=== PATIENT | female | born 1990 | race Native Hawaiian/Other Pacific Islander ===

== ENCOUNTER 2017-01-13 12:11 | Emergency (ER) | payer OTHER ==
[~2017-01-13] VITALS: Ht 157.5 cm; Wt 60.0 kg
[2017-01-13 12:12] VITALS: BP 127/84; PULSE 97; RESP 16; TEMP 98.5; O2SAT 100
[2017-01-13] MEDS ORDERED: [UNRECOGNIZED DRUG - OTHER] PO (12:32)
[2017-01-13 14:40] LABS: BACTERIA, URINE FEW /hpf; BLOOD, URINE NEG (NEG); COMMENT (UR) CULTURE INDICATED; CULTURE IF INDICATED CULTURE INDICATED; GLUCOSE,URINE NEG (NEG); KETONE, URINE NEG (NEG); MUCUS URINE FEW /lpf (OCC); NITRITE,URINE NEG (NEG); SQUAMOUS EPITHELIAL CELL URINE 1 /hpf (0-5); URINE COLOR LIGHT-YELLOW (YELLW/STRAW)
[2017-01-13] MEDS ORDERED: ACYC400T PO (14:43)
--- NOTE | 2017-01-13 14:47 | PD ---
HPI . Vaginal lesions Chief Complaint: Systems Coordinator Problem/Complaint Time Seen by Provider: 12:58 Travel History International Travel<30 days: No Contact w/Intl Traveler<30days: No Traveled to known affect area: No History of Present Illness HPI 26 year old female patient presents to the emergency department for evaluation of vaginal sores and dysuria x 3 days. Patient denies any other physiological complaint at this time. Denies any major medical history and doesn't take any daily medications. Patient states she is a virgin and has never had any type of sexual encounter. Patient's fiance in the room. He didn't want to step out and the patient wanted him in the room. Patient denies any fever, chills, malaise, abdominal pain, nausea, vomiting, diarrhea. PFSH Past Medical History Medical History: Denies Significant Hx Diminished Hearing: No ?: Not Past Surgical History Gynecologic Surgery: Yes (OVARIAN CYST REMOVED) Social History Alcohol Use: No Tobacco Use: No Substance Use: No Allergies-Medications (Allergen,Severity, Reaction): Coded Allergies: No Known Allergies (Unverified , 01/13/17) Reported Meds & Prescriptions Reported Meds & Active Scripts Active Macrobid (Nitrofurantoin Monoh/Nitrofur Macro) 100 Mg Cap 100 Mg PO BID 10 Days Acyclovir 400 Mg Tab 400 Mg PO TID 10 Days Reported [Novelon] 1 Tab PO DAILY Review of Systems Except as stated in HPI: all other systems reviewed are Neg Physical Exam Narrative GENERAL: Well-nourished, well-developed 26 year old female patient that appears to be uncomfortable. Nontoxic appearing. SKIN: Focused skin assessment warm/dry. HEAD: Normocephalic. Atraumatic. EYES: No scleral icterus. No injection or drainage. NECK: Supple, trachea midline. No JVD or lymphadenopathy. CARDIOVASCULAR: Regular rate and rhythm without murmurs, gallops, or rubs. RESPIRATORY: Breath sounds equal bilaterally. No accessory muscle use. GENITOURINARY: Dysuria, multiple very painful vaginal lesions noted extending from labia minora and majora. GASTROINTESTINAL: Abdomen soft, non-tender, nondistended. MUSCULOSKELETAL: No cyanosis, or edema. Data Data Last Documented VS Vital Signs Date Time Temp Pulse Resp B/P (MAP) Pulse Ox O2 Delivery O2 Flow Rate FiO2 01/13/17 12:12 98.5 97 16 127/84 (98) 100 Orders Orders Gc And Chlamydia Pcr (01/13/17 13:13) Wet Prep Profile (01/13/17 13:13) Urinalysis - C+S If Indicated (01/13/17 13:13) Herpes Simplex Virus Culture (01/13/17 13:13) Urine Culture (01/13/17 14:22) Ed Discharge Order (01/13/17 14:48) Nitrofurantoin Monohyd Macrocr (Macrobid (01/13/17 15:00) Labs Laboratory Tests Test 01/13/17 14:22 Urine Color LIGHT-YELLOW Urine Turbidity HAZY Urine pH 5.0 Urine Specific [place] 1.003 Urine Protein NEG mg/dL Urine Glucose (UA) NEG mg/dL Urine Ketones NEG mg/dL Urine Occult Blood NEG Urine Nitrite NEG Urine Bilirubin NEG Urine Urobilinogen LESS THAN 2.0 MG/DL Urine Leukocyte Esterase LARGE Urine RBC 3 /hpf Urine WBC 13 /hpf Urine Squamous Epithelial Cells 1 /hpf Urine Amorphous Sediment RARE Urine Bacteria FEW /hpf Urine Mucus FEW /lpf Microscopic Urinalysis Comment CULTURE INDICATED MDM Medical Decision Making Medical Screen Exam Complete: Yes Emergency Medical Condition: Yes Differential Diagnosis Differential diagnoses include but not limited to us STI, genital herpes, vaginal lesions, UTI Narrative Course Patient refused to have a pelvic exam stating she has never been and never had sex. Patient states there were been nothing found internal and she does not what an internal exam. Patient did allow us to culture the vaginal lesions. Patient's fiance refused to leave the room and patient states she would like him in the room. Vaginal lesions cultures for herpes. U/A results reflect UTI. Patient treated empirically for herpes with a prescription for Acyclovir and instructed to follow up with her doctor of radiology. Patient given a prescription for Macrobid for urinary tract infection. Patient discharged home at this time. Diagnosis Primary Impression: Genital lesion, female Additional Impression: Urinary tract infection Qualified Codes: N39.0 - Urinary tract infection, site not specified Referrals: Construction Management Instructor Patient Instructions: Acyclovir (By mouth), General Instructions Additional Instructions: Please return to emergency department if your symptoms return or worsen. Follow up with your doctor of radiology. Take medications as prescribed. Med/Other Pt SpecificInfo: Prescription(s) given Scripts Nitrofurantoin Monohydrate Macrocrystals (Macrobid) 100 Mg Cap 100 MG PO BID for Infection for 10 Days, #20 CAP 0 Refills Prov: Mehreen Cervantes DO 01/13/17 Acyclovir (Acyclovir) 400 Mg Tab 400 MG PO TID for Mgmt Viral Infection for 10 Days, TAB 0 Refills Prov: Telma Thomas 01/13/17 Disposition: 01 DISCHARGE HOME Condition: Stable Telma Thomas Jan 13, 2017 14:47
[2017-01-13] MEDS ORDERED: MACR100C2 PO (14:56)
[2017-01-13] MEDS ORDERED: NITROFURANTOIN MONOHYD MACROCR 100 MG CAP PO ONE (15:00)
[2017-01-14 02:52] LABS: CHLAMYDIA PCR NOT DETECTED (NOT DETECT); NEISSERIA PCR NOT DETECTED (NOT DETECT)
== END 2017-01-13 15:22 | disposition home or self-care (01) ==
LOC: NEPD 12:11
DX: A60.04 Herpesviral vulvovaginitis (principal); N39.0 Urinary tract infection, site not specified; B96.89 Other specified bacterial agents as the cause of diseases classified elsewhere
CPT/HCPCS: 81001; 87086; 87255; 87491; 87591; 99284

== ENCOUNTER 2018-01-18 01:18 | Observation (INO) ==
[2018-01-18] MEDS ORDERED: Morphine Inj 4 MG/ML Vial IV.PUSH ONE (02:52)
[2018-01-18] MEDS ORDERED: Sod Chloride 0.9% Inj 1,000 ML IV.SIG ONE (02:52)
--- NOTE | 2018-01-18 03:10 | ED ---
HPI General Chief Complaint: Abdominal Pain Stated Complaint: Lower abd pain x 1 day Time Seen by Provider: 01/18/18 02:51 Source: patient and family () Mode of arrival: ambulatory Limitations: no limitations History of Present Illness HPI narrative: 27-year-old female came to the emergency room with history of abdominal pain that has been going on for the past 4 days. Patient went to the school clinic where she was told that she had a UTI and was started on antibiotic. Patient does not recall the name of the medication but she has been taking it for past 3 days. However the pain continued. Currently her pain is in the right lower quadrant and anal area. Patient denies any nausea or vomiting. She says that her appetite is intact. Her last meal was dinner which she ate as normal. There was a urine done today at the clinic when she revisited the place for the abdominal pain and it was negative. Patient appears uncomfortable. She is otherwise a healthy person. She had a bowel movement yesterday which was normal. Pain is worse upon movement. No radiation of the pain. Related Data Previous Rx's Medication Instructions Recorded doxycycline hyclate 100 mg PO Q12HR 9 Days cap 01/19/18 hydrocodone-acetaminophen [[place]] 1 tab PO Q6H PRN 10 Days tab 01/19/18 levofloxacin [Levaquin] 750 mg PO DAILY 7 Days #7 tab 01/19/18 magnesium hydroxide [Milk of 5 ml PO DAILY PRN #50 ml 01/19/18 Magnesia] simethicone [Gas-X] 1 strip PO DAILY 5 Days each 01/19/18 Allergies Allergy/AdvReac Type Severity Reaction Status Date / Time No Known Allergies Allergy Verified 01/18/18 03:14 [facility] History Provided By: Patient Social History Social History Substance History: No History of Abuse Second Hand Smoke Exposure: No Smoking Status: Never smoker How Often Do You Have a Drink Containing Alcohol: Monthly or less Recent Travel in [facility] within the Last 8 Weeks: No Recent Out of Country Travel within the Last 8 Weeks: Yes Exam Narrative Exam Narrative: GENERAL: Awake, alert, moderate to significant distress SKIN: Focused skin assessment warm/dry. HEAD: Atraumatic. Normocephalic. EYES: Pupils equal and round. No scleral icterus. No injection or drainage. ENT: No nasal bleeding or discharge. Mucous membranes pink and moist. NECK: Trachea midline. No JVD. CARDIOVASCULAR: Regular rate and rhythm. No murmur appreciated. RESPIRATORY: No accessory muscle use. Clear to auscultation. Breath sounds equal bilaterally. GASTROINTESTINAL: Abdomen soft, generalized tenderness with guarding, nondistended. Hepatic and splenic margins not palpable. MUSCULOSKELETAL: No obvious deformities. No clubbing. No cyanosis. No edema. NEUROLOGICAL: Awake and alert. No obvious cranial nerve deficits. Motor grossly within normal limits. Normal speech. PSYCHIATRIC: Appropriate mood and affect; insight and judgment normal. Course Initial Documented Vital Signs Temperature 97.1 F L 01/18/18 01:23 Pulse Rate 100 H 01/18/18 01:23 Respiratory Rate 18 01/18/18 01:23 Blood Pressure 123/82 01/18/18 01:23 Pulse Oximetry 96 01/18/18 01:23 Last Documented Vital Signs Temperature 97.3 F L 01/19/18 12:00 Pulse Rate 91 H 01/19/18 12:00 Respiratory Rate 16 01/19/18 12:00 Blood Pressure 122/74 01/19/18 12:00 Pulse Oximetry 100 01/19/18 12:00 Sign Out Sign Out Data: Patient Sign Out occurred on 01/18/18 at 07:02. Patient's care was discussed, and care was transferred from Nicho Crockett to Lisa Harmon MD. Sign Out Comment: Pending ultrasound pelvic to rule out TOA versus ovarian torsion. Call Dr. Vela with the report. Last updated by Nicho Crockett MD at 01/18/18 06:53 Post-Handoff Eval: I received care of patient in check out. Doppler US showed adequate flow to the bilateral ovaries. I discussed this with the OB Hospitalist campus monitor, whom recommended that she be admitted here for IV antibiotics and have a routine gynecology consult, which has been placed. I spoke with Dr Kaba, hospitalist campus monitor whom agreed to the admission. Medical Decision Making MDM Narrative Medical decision making narrative: 4:01 AM awaiting for blood test results and CAT scan to be done and resulted. Patient has been medicated for pain. She is getting IV fluid bolus. 5:16 AM blood test results are back. Patient has leukocytosis with left shift. UA seems to be positive. Patient is given a dose of Zosyn for possible appendicitis/abscess/diverticulitis. Awaiting for the CAT scan to be done and resulted. 6:46 AM based on the CAT scan report I decided to get a pelvic exam done. Patient told me during the exam that her only sexual partner so far in her life has been her . They have had protected sex with condom at all times apparently. However her did mention to her 2 days back that he had some irritation at the tip of the urethra. The pelvic exam was extremely uncomfortable and painful for the patient. There was some bloody mucus discharge. Swabs are collected. Patient had positive CMT and right adnexal tenderness. I have ordered for an ultrasound. I discussed the case with Dr. Vela from [facility] at the [facility]. He recommended to wait for the CAT scan report and to give him a call back to discuss further plans. Case will be signed over to the oncoming ER physician. Medical Screen Exam Complete: Yes Emergency Medical Condition: Yes Lab Data Result diagrams: 01/19/18 07:28 01/19/18 07:28 POC Results POC Urine Results Negative Lab Results 01/18/18 01/18/18 01/18/18 Range/Units 04:00 04:00 04:00 CBC w Diff Auto diff final WBC 19.0 H (4.0-11.0) th/mm3 RBC 4.64 (4.00-5.30) mil/mm3 Hgb 13.9 (11.6-15.3) gm/dL Hct 41.3 (35.0-46.0) % MCV 88.9 (80.0-100.0) fL MCH 30.0 (27.0-34.0) pg MCHC 33.7 (32.0-36.0) % RDW 12.7 (11.6-17.2) % Plt Count 415 (150-450) th/mm3 MPV 7.5 (7.0-11.0) fL Neut % (Auto) 85.4 H (16.0-70.0) % Lymph % (Auto) 8.7 L (9.0-44.0) % [place] % (Auto) 5.0 (0.0-8.0) % Eos % (Auto) 0.5 (0.0-4.0) % Baso % (Auto) 0.4 (0.0-2.0) % Neut # (Auto) 16.1 H (1.8-7.7) th/mm3 Lymph # (Auto) 1.7 (1.0-4.8) th/mm3 [place] # (Auto) 1.0 H (0.0-0.9) th/mm3 Eos # (Auto) 0.1 (0.0-0.4) th/mm3 Baso # (Auto) 0.1 (0.0-0.2) th/mm3 WBC Differential . Differential Comment . Sodium 139 (136-145) meq/L Potassium 3.9 (3.5-5.1) meq/L Chloride 105 (98-107) meq/L Carbon Dioxide 26.4 (21.0-32.0) meq/L Anion Gap 8 (5-15) meq/L BUN 11 (7-18) mg/dL Creatinine 0.78 (0.50-1.00) mg/dL Estimated GFR 87 L (>89) mL/min Random Glucose 106 (74-106) mg/dL Lactic Acid (0.4-2.0) mmol/L Calcium 8.4 L (8.5-10.1) mg/dL Magnesium 2.3 (1.5-2.5) mg/dL Total Bilirubin 0.4 (0.2-1.0) mg/dL AST 15 (15-37) U/L ALT 15 (10-53) U/L Alkaline Phosphatase 108 (45-117) U/L Total Protein 7.8 (6.4-8.2) g/dL Albumin 3.4 (3.4-5.0) g/dL Lipase 102 (73-393) U/L Urine Color [place] H (Yellw/Straw) Urine Clarity Clear (Clear) Urine pH 5.0 (5.0-8.5) Ur Specific [place] 1.020 (1.002-1.035) Urine Protein 100 H (Neg-Trace) mg/dL Urine Glucose (UA) 250 H (Negative) mg/dL Urine Ketones Trace H (Negative) mg/dL Urine Occult Blood Large H (Negative) Urine Nitrate Positive H (Negative) Urine Bilirubin Negative (Negative) Urine Ictotest Negative (Negative) Urine Urobilinogen 4.0 H (Less than 2) mg/dL Ur Leukocyte Esterase Trace H (Negative) Urine RBC 15-50 H (0-3) /hpf Urine WBC 9-20 H (0-5) /hpf Ur Squamous Epith Cells 0-5 (0-5) /hpf Urine Bacteria Rare H (None) /hpf Micro UA Comment Culture indicated Ur Microscopic Review Microscopic reviewed Urine Culture Comments Culture indicated Clue Cells (Wet Prep) (None Seen) Trichomonas (Wet Prep) (None Seen) Yeast (Wet Prep) (None Seen) Chlam trachomat DNA PCR (Not Detect) N.gonorrhoeae DNA (PCR) (Not Detect) 01/18/18 01/18/18 01/18/18 Range/Units 04:50 06:15 06:15 CBC w Diff WBC (4.0-11.0) th/mm3 RBC (4.00-5.30) mil/mm3 Hgb (11.6-15.3) gm/dL Hct (35.0-46.0) % MCV (80.0-100.0) fL MCH (27.0-34.0) pg MCHC (32.0-36.0) % RDW (11.6-17.2) % Plt Count (150-450) th/mm3 MPV (7.0-11.0) fL Neut % (Auto) (16.0-70.0) % Lymph % (Auto) (9.0-44.0) % [place] % (Auto) (0.0-8.0) % Eos % (Auto) (0.0-4.0) % Baso % (Auto) (0.0-2.0) % Neut # (Auto) (1.8-7.7) th/mm3 Lymph # (Auto) (1.0-4.8) th/mm3 [place] # (Auto) (0.0-0.9) th/mm3 Eos # (Auto) (0.0-0.4) th/mm3 Baso # (Auto) (0.0-0.2) th/mm3 WBC Differential Differential Comment Sodium (136-145) meq/L Potassium (3.5-5.1) meq/L Chloride (98-107) meq/L Carbon Dioxide (21.0-32.0) meq/L Anion Gap (5-15) meq/L BUN (7-18) mg/dL Creatinine (0.50-1.00) mg/dL Estimated GFR (>89) mL/min Random Glucose (74-106) mg/dL Lactic Acid 1.2 (0.4-2.0) mmol/L Calcium (8.5-10.1) mg/dL Magnesium (1.5-2.5) mg/dL Total Bilirubin (0.2-1.0) mg/dL AST (15-37) U/L ALT (10-53) U/L Alkaline Phosphatase (45-117) U/L Total Protein (6.4-8.2) g/dL Albumin (3.4-5.0) g/dL Lipase (73-393) U/L Urine Color (Yellw/Straw) Urine Clarity (Clear) Urine pH (5.0-8.5) Ur Specific [place] (1.002-1.035) Urine Protein (Neg-Trace) mg/dL Urine Glucose (UA) (Negative) mg/dL Urine Ketones (Negative) mg/dL Urine Occult Blood (Negative) Urine Nitrate (Negative) Urine Bilirubin (Negative) Urine Ictotest (Negative) Urine Urobilinogen (Less than 2) mg/dL Ur Leukocyte Esterase (Negative) Urine RBC (0-3) /hpf Urine WBC (0-5) /hpf Ur Squamous Epith Cells (0-5) /hpf Urine Bacteria (None) /hpf Micro UA Comment Ur Microscopic Review Urine Culture Comments Clue Cells (Wet Prep) None seen (None Seen) Trichomonas (Wet Prep) None seen (None Seen) Yeast (Wet Prep) None seen (None Seen) Chlam trachomat DNA PCR Not detected (Not Detect) N.gonorrhoeae DNA (PCR) Not detected (Not Detect) 01/19/18 01/19/18 Range/Units 07:28 07:28 CBC w Diff Auto diff final WBC 10.6 (4.0-11.0) th/mm3 RBC 4.21 (4.00-5.30) mil/mm3 Hgb 12.9 (11.6-15.3) gm/dL Hct 37.8 (35.0-46.0) % MCV 89.7 (80.0-100.0) fL MCH 30.5 (27.0-34.0) pg MCHC 34.0 (32.0-36.0) % RDW 12.5 (11.6-17.2) % Plt Count 394 (150-450) th/mm3 MPV 7.6 (7.0-11.0) fL Neut % (Auto) 61.4 (16.0-70.0) % Lymph % (Auto) 28.2 (9.0-44.0) % [place] % (Auto) 7.4 (0.0-8.0) % Eos % (Auto) 1.4 (0.0-4.0) % Baso % (Auto) 1.6 (0.0-2.0) % Neut # (Auto) 6.5 (1.8-7.7) th/mm3 Lymph # (Auto) 3.0 (1.0-4.8) th/mm3 [place] # (Auto) 0.8 (0.0-0.9) th/mm3 Eos # (Auto) 0.1 (0.0-0.4) th/mm3 Baso # (Auto) 0.2 (0.0-0.2) th/mm3 WBC Differential . Differential Comment . Sodium 141 (136-145) meq/L Potassium 3.7 (3.5-5.1) meq/L Chloride 107 (98-107) meq/L Carbon Dioxide 26.3 (21.0-32.0) meq/L Anion Gap 8 (5-15) meq/L BUN 6 L (7-18) mg/dL Creatinine 0.75 (0.50-1.00) mg/dL Estimated GFR Greater than 89 (>89) mL/min Random Glucose 90 (74-106) mg/dL Lactic Acid (0.4-2.0) mmol/L Calcium 7.9 L (8.5-10.1) mg/dL Magnesium (1.5-2.5) mg/dL Total Bilirubin (0.2-1.0) mg/dL AST (15-37) U/L ALT (10-53) U/L Alkaline Phosphatase (45-117) U/L Total Protein (6.4-8.2) g/dL Albumin (3.4-5.0) g/dL Lipase (73-393) U/L Urine Color (Yellw/Straw) Urine Clarity (Clear) Urine pH (5.0-8.5) Ur Specific [place] (1.002-1.035) Urine Protein (Neg-Trace) mg/dL Urine Glucose (UA) (Negative) mg/dL Urine Ketones (Negative) mg/dL Urine Occult Blood (Negative) Urine Nitrate (Negative) Urine Bilirubin (Negative) Urine Ictotest (Negative) Urine Urobilinogen (Less than 2) mg/dL Ur Leukocyte Esterase (Negative) Urine RBC (0-3) /hpf Urine WBC (0-5) /hpf Ur Squamous Epith Cells (0-5) /hpf Urine Bacteria (None) /hpf Micro UA Comment Ur Microscopic Review Urine Culture Comments Clue Cells (Wet Prep) (None Seen) Trichomonas (Wet Prep) (None Seen) Yeast (Wet Prep) (None Seen) Chlam trachomat DNA PCR (Not Detect) N.gonorrhoeae DNA (PCR) (Not Detect) Imaging Data Radiologist's impression: Abdomen/Pelvis CT 01/18/18 02:52 CONCLUSION: 1. There is a 3.9 cm heterogeneous density lesion associated with the right ovary. The nonspecific this could represent a hemorrhagic cyst and is likely the cause for the patient's pain. There may be some associated inflammation in the adjacent fat and bowel. 2. The terminal ileum has a normal appearance and the appendix is normal and in a retrocecal position away from the right lower quadrant abnormality. Pelvis Ultrasound 01/18/18 05:45 CONCLUSION: 1. There is a complex cyst versus mass in the right adnexa measuring approximately 2.8 cm. This may represent a hemorrhagic cyst versus endometrioma. 2. The left ovary is heterogeneous. 3. The uterus is grossly unremarkable. Abdomen/Pelvis/Transvag US 01/18/18 08:13 CONCLUSION: 1. The uterus is grossly unremarkable. 2. Bilateral complex ovarian masses. 3. Both ovaries demonstrate blood flow. Discharge Plan Discharge Disposition Patient Disposition: 30 Still Patient Discharge Condition Condition: Stable Discharge Order Discharge Orders: Discharge Order (Routine); Ordered 01/19/18 Ordered By: Telma Woodson ED Use Only Admit Order (Routine); Ordered 01/18/18 Ordered By: Lisa Harmon Discharge Details Anticipated Discharge Date: 01/19/18 Diagnosis: Acute pelvic inflammatory disease (PID) Physicians Team ED Provider: Lisa Harmon Primary Care Provider: Primary Care Physici,No Attending Provider: Ganesh Kaba Other Providers: Sandy Can ; [facility],Insurance Status ED Status: Left Department Discharge Information Discharge Date/Time: 01/18/18 12:15
[2018-01-18 04:32] LABS: Clarity,Urine Clear (Clear); Glucose,Urine (UA) 250 mg/dL (Negative); Leukocyte Esterase,Urine Trace (Negative); Nitrite,Urine Positive (Negative)
[2018-01-18 04:34] LABS: Color,Urine Orange (Yellw/Straw)
[2018-01-18 04:35] LABS: Baso # (Auto) 0.1 th/mm3 (0.0-0.2); Baso % (Auto) 0.4 % (0.0-2.0); Bilirubin,Urine Negative (Negative); Eos # (Auto) 0.1 th/mm3 (0.0-0.4); Eos % (Auto) 0.5 % (0.0-4.0); Hematocrit 41.3 % (35.0-46.0); Hemoglobin 13.9 gm/dL (11.6-15.3); Ictotest,Urine Negative (Negative); Lymph # (Auto) 1.7 th/mm3 (1.0-4.8); Lymph % (Auto) 8.7 % (9.0-44.0); Mean Corpuscular HGB Conc 33.7 % (32.0-36.0); Mean Corpuscular Volume 88.9 fL (80.0-100.0); Mean Platelet Volume 7.5 fL (7.0-11.0); Neut # (Auto) 16.1 th/mm3 (1.8-7.7); Neut % (Auto) 85.4 % (16.0-70.0); Platelet Count 415 th/mm3 (150-450); Red Blood Count 4.64 mil/mm3 (4.00-5.30); Red Cell Distribution Width 12.7 % (11.6-17.2)
[2018-01-18 04:37] LABS: Bacteria,Urine Rare /hpf; Squamous Epithelial Cell,Urine 0-5 /hpf (0-5)
[2018-01-18] MEDS ORDERED: Piperacil/Tazo 3.375 GM Premix 50 ML IV.SIG ONE (04:38)
[2018-01-18 04:45] LABS: Chloride 105 meq/L (98-107); Potassium 3.9 meq/L (3.5-5.1); Sodium 139 meq/L (136-145)
[2018-01-18 04:48] LABS: Calcium 8.4 mg/dL (8.5-10.1)
[2018-01-18 04:49] LABS: Albumin 3.4 g/dL (3.4-5.0); Anion Gap 8 meq/L (5-15); Blood Urea Nitrogen 11 mg/dL (7-18); Carbon Dioxide 26.4 meq/L (21.0-32.0); Glucose,Random 106 mg/dL (74-106); Lipase 102 U/L (73-393); Magnesium 2.3 mg/dL (1.5-2.5)
[2018-01-18 04:52] LABS: Alanine Aminotransferase 15 U/L (10-53); Aspartate Aminotransferase 15 U/L (15-37); Glomerular Filtration Rate 87 mL/min (>89)
[2018-01-18 04:53] LABS: Total Protein 7.8 g/dL (6.4-8.2)
[2018-01-18 04:54] LABS: Alkaline Phosphatase 108 U/L (45-117)
--- NOTE | 2018-01-18 05:42 | CT ---
EXAM DATE: 01/18/2018 5:27 AM EST AGE/SEX: 27 years / Female INDICATIONS: Right lower quadrant pain. CLINICAL DATA: This is the patient's initial encounter. Patient reports that signs and symptoms have been present for 4 - 6 days and indicates a pain score of 3/10. MEDICAL/SURGICAL HISTORY: None. None. ORAL CONTRAST: No oral contrast ingested. RADIATION DOSE: 10.49 CTDI (mGy) COMPARISON: No prior exams available for comparison. TECHNIQUE: Multiple contiguous axial images were obtained through the abdomen and pelvis following b olus infusion of 95 ml Omnipaque 350 (iohexol) nonionic water-soluble contrast as a single exam dos e. No oral contrast ingested. Using automated exposure control and adjustment of the mA and/or kV ac cording to patient size, radiation dose was kept as low as reasonably achievable to obtain optimal di agnostic quality images. DICOM format image data is available electronically for review and comparis on. FINDINGS: Lower chest: No acute abnormality is identified. Hepatobiliary: No focal liver lesion is identified. Hepatic vasculature demonstrates no abnormality. No calcified gallstones are present. Kidneys: No hydronephrosis, stone, or mass. Adrenal Glands: Within normal limits. Spleen: Within normal limits. Pancreas: Within normal limits. Vascular: The aorta is nonaneurysmal. Bowel/Mesentery: The stomach and small bowel demonstrate no abnormality. No acute colon abnormality i s seen. There is no free intraperitoneal air or fluid. The appendix and terminal ileum have a normal appearance. It may be a mild degree of inflammation or edema in the right lower quadrant adjacent to the right ovary. Additionally, the adjacent bowel may be mildly inflamed. Abdominal Wall: No hernia is visualized. Retroperitoneum: No lymphadenopathy. Bladder: No wall thickening or mass. Reproductive: Uterus and left ovary demonstrate no abnormality. There is a heterogeneous density lesi on in the right adnexa measuring up to 3.9 cm arising from the right ovary. There may be is a mild de gree of adjacent inflammation. There is no free fluid. Inguinal: No lymphadenopathy or hernia. Musculoskeletal: No acute osseous abnormality is identified. CONCLUSION: 1. There is a 3.9 cm heterogeneous density lesion associated with the right ovary. The nonspecific t his could represent a hemorrhagic cyst and is likely the cause for the patient's pain. There may be s ome associated inflammation in the adjacent fat and bowel. 2. The terminal ileum has a normal appearance and the appendix is normal and in a retrocecal positio n away from the right lower quadrant abnormality. Electronically signed by: Selvin Ocampo MD 01/18/2018 5:40 AM EST
--- NOTE | 2018-01-18 07:57 | US ---
EXAM DATE: 01/18/2018 7:50 AM EST AGE/SEX: 27 years / Female INDICATIONS: Pelvic pain. CLINICAL DATA: This is the patient's initial encounter. Patient reports that signs and symptoms have been present for 4 - 6 days and indicates a pain score of 7/10. MEDICAL/SURGICAL HISTORY: None. None. COMPARISON: [facility], CT ABDOMEN & PELVIS W CONTRAST, 01/18/2018. . MEASUREMENTS: Uterus:__7.8 x 5.9 x 4.2 cm Endometrial Stripe:__5 mm Right Ovary:__ 4.0 x 3.9 x 2.6 cm Left Ovary:__ 3.7 x 3.4 x 2.9 cm FINDINGS: Uterus: The myometrium has homogeneous echotexture without mass. The endometrial cavity appears empt y. Endometrial Stripe: The endometrial stripe displays homogeneous echotexture. Right Ovary: There is a complex cyst versus mass in the right adnexa associated with the right ovary . This measures approximately 2.8 x 2.5 cm. There is also a small benign-appearing cyst measuring 9 m m. Left Ovary: The left ovary is heterogeneous. Fluid: No free fluid. Other: None. These findings appear to correlate with the recent CT scan of the abdomen/pelvis. CONCLUSION: 1. There is a complex cyst versus mass in the right adnexa measuring approximately 2.8 cm. This may represent a hemorrhagic cyst versus endometrioma. 2. The left ovary is heterogeneous. 3. The uterus is grossly unremarkable. Electronically signed by: Pipo Chappell MD 01/18/2018 7:56 AM EST
--- NOTE | 2018-01-18 10:18 | US ---
EXAM DATE: 01/18/2018 10:11 AM EST AGE/SEX: 27 years / Female INDICATIONS: Pelvic pain;. Evaluate ovaries for color flow. CLINICAL DATA: This is the patient's subsequent encounter. Patient reports that signs and symptoms h ave been present for 4 - 6 days and indicates a pain score of 2/10. MEDICAL/SURGICAL HISTORY: . Pelvic pain. Hiatal hernia. Right ovarian cysts. . Laparoscopic to remove right ovarian cyst. COMPARISON: [facility], US PELVIC COMP W TRANSVAGINAL, 01/18/2018. . MEASUREMENTS: Uterus:__8.0 x 5.7 x 3.6 cm Endometrial Stripe:__5 mm Right Ovary:__ 4.4 x 4.4 x 3.2 cm Left Ovary:__ 3.1 x 4.2 x 2.6 cm FINDINGS: Uterus: The myometrium has homogeneous echotexture without mass. Endometrial Stripe: The endometrial stripe displays homogeneous echotexture. Right Ovary: There is a complex mass associated with the right ovary measuring 3.3 x 2.7 cm. There i s blood flow to the right ovary. Left Ovary: There is a complex mass associated with the left ovary measuring 1.9 x 1.6 cm. There is blood flow to the left ovary. Fluid: No free fluid. Other: None. CONCLUSION: 1. The uterus is grossly unremarkable. 2. Bilateral complex ovarian masses. 3. Both ovaries demonstrate blood flow. Electronically signed by: Pipo Chappell MD 01/18/2018 10:16 AM EST
[2018-01-18] MEDS ORDERED: Acetaminophen 325 MG Tablet PO PRN (12:01)
--- NOTE | 2018-01-18 12:30 | P.CONOB ---
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 Pain started with dysuria symptoms on Saturday, pt is in graduate school at [employer] and went to health clinic there, was told has UTI and started on antibiotic, pt does not remember name but states she has been taking as prescribed. States pain improved on Saturday but on night she had RLQ pain and period-like cramps, despite her cycle having ended on Saturday. Took hot bath and was able to go to sleep with resolution of pain by Saturday morning. Saturday evening woke up with pressure in anal area, went to bathroom and had normal BM but no improvement in pain. Contacted her SALES SERVICE SUPERVISOR physician in [facility] (who she has seen since since time of menarche age 10), who encouraged her to go to the hospital for evaluation as pt has hx of endometriosis diagnosed on laparoscopy in 2008 or 2009, had "8cm endometrioma chocolate cyst" removed surgically at that time, was on Lupron x 3 doses after surgery and had done well until 2016 when states cysts began to occur again. Patient does have a private SALES SERVICE SUPERVISOR Dr. Yuliet Moya of [facility] , who had placed pt on continuous OCP suppression x 6 months, this just ended in November 2017. Cycle pt had starting through 01/14/18 was first cycle in months as first time she was off continuous OCP. She did restart her control on as per her SALES SERVICE SUPERVISOR Dr. Moya. Afebrile, no chills, having light spotting today. Usually cycles only last 4-5d, this last cycle was unusual in that it is still going on. Patient states currently pain is 2/ 10 in low pelvis with no longer radiating to rectal area. No concern for STI as she & her are each other's only partners and they use condoms every time they are active. Patient does have hx of UTI, she admits she often holds her urine and does not drink water throughout the day. Para: 0 : 0 Last menstrual period: 01/09/18 Total # of Miscarriage(s): 0 Total # of Abortions (Spontaneous & Elective): 0 Review of Systems All other systems reviewed negative except as stated in HPI PMFSH - History History Provided By: Patient - Medical History Medical History: Medical History (Last Updated 01/18/18 @ 12:19 by Sandy Can MD) History of endometriosis Primary dysmenorrhea - Surgical History Surgical History: Surgical History (Last Updated 01/18/18 @ 12:19 by Sandy Can MD) H/O ovarian cystectomy History of repair of hiatal hernia Hx of LASIK - Family History Family History: Family History (Last Updated 01/18/18 @ 12:20 by Sandy Can MD) Other Family history of endometriosis in first degree relative No family history of breast cancer No family history of ovarian cancer - Social History I have reviewed the patient's Social History: Yes - Tobacco History Second Hand Smoke Exposure: No Tobacco Use In Past 30 Days: No Smoking Status: Never smoker - Alcohol History How Often Do You Have a Drink Containing Alcohol: Monthly or less - Substance Use History Substance History: No History of Abuse - Travel History Recent Travel in the [place] Within the Last 8 Weeks: No Recent Travel Out of the Country Within the Last 8 Weeks: Yes - Immunization History Tetanus Immunization: Unsure Medications and Allergies Active Medications: Active Medications Acetaminophen (Tylenol) 650 mg PO Q4H PRN PRN Reason: Temp > 100.4 Ceftriaxone Sodium 1,000 mg/ (Sodium Chloride) 100 mls @ 200 mls/hr IV.SIG Q24H BOBO Piperacillin/Tazobactam/Dextrose (Zosyn 4.5 Gm Premix) 4.5 gm in 100 mls @ 200 mls/hr IV.SIG Q6H BOBO Ondansetron HCl (Zofran Inj) 4 mg IV.PUSH Q6H PRN PRN Reason: NAUSEA OR VOMITING Sodium Chloride (Ns Flush) 2 ml IV.FLUSH PRN PRN PRN Reason: FLUSH AFTER USING IV ACCESS Last Admin: 01/18/18 04:20 Dose: 2 ml Sodium Chloride (Ns Flush) 2 ml IV.FLUSH BID BOBO Sodium Chloride (Ns Flush) 2 ml IV.FLUSH PRN PRN PRN Reason: FLUSH AFTER USING IV ACCESS Allergies Allergy/AdvReac Type Severity Reaction Status Date / Time No Known Allergies Allergy Verified 01/18/18 03:14 Home Medications Medication Instructions Recorded Confirmed Type No Known Home Medications 01/18/18 01/18/18 History Exam Vital signs: Vital Signs 01/18/18 01:23 01/18/18 05:02 01/18/18 11:00 Temperature 97.1 F L Pulse Rate 100 H 84 85 Respiratory Rate 18 18 16 Blood Pressure 123/82 119/76 147/108 H Pulse Oximetry 96 98 95 Intake & Output 01/17/18 01/18/18 01/18/18 18:59 06:59 18:59 Intake Total 1050 / 1050 Balance 1050 / 1050 Weight 68.9 kg Intake: IV 1050 / 1050 Zosyn 3.375 GM Premix 50 ML @ 50 / 50 100 mls/hr IV.SIG ONCE ONE Rx#: [id number] NS Inj 1,000 ML @ Wide Open IV. 1000 / 1000 SIG BOLUS ONE Rx#:[id number] - Constitutional no acute distress - Routine HEENT Exam Head: Present: normocephalic, atraumatic Eye: Present: EOMI, PERRL ENT: Present: mucous membranes moist - Routine Neck Exam Present: supple, full ROM - Routine Chest/Breast/Axilla Exam Chest wall: Absent: tenderness, mass - Routine Respiratory Exam Present: CTA bilaterally. Absent: accessory muscle use - Routine Cardiovascular Exam Present: RRR. Absent: irregular rhythm - Routine Abdominal Exam Present: soft, tenderness (mild in suprapubic area and RLQ; no rebound). Absent : distended, guarding - Routine Extremities Exam Absent: cyanosis, edema - Routine Skin Exam Present: intact. Absent: erythema - Routine Neurological Exam Present: alert, oriented X3 - Additional findings Additional findings: light menstrual spotting vaginally; mildly TTP RLQ on pelvic exam Results - Labs CBC & Chem 7: 01/18/18 04:00 01/18/18 04:00 Labs: Laboratory Results - last 24 hr 01/18/18 01/18/18 01/18/18 04:00 04:00 04:00 CBC w Diff Auto diff final WBC 19.0 H RBC 4.64 Hgb 13.9 Hct 41.3 MCV 88.9 MCH 30.0 MCHC 33.7 RDW 12.7 Plt Count 415 MPV 7.5 Neut % (Auto) 85.4 H Lymph % (Auto) 8.7 L [place] % (Auto) 5.0 Eos % (Auto) 0.5 Baso % (Auto) 0.4 Neut # (Auto) 16.1 H Lymph # (Auto) 1.7 A[place] # (Auto) 1.0 H Eos # (Auto) 0.1 Baso # (Auto) 0.1 WBC Differential . Differential Comment . Sodium 139 Potassium 3.9 Chloride 105 Carbon Dioxide 26.4 Anion Gap 8 BUN 11 Creatinine 0.78 Estimated GFR 87 L Random Glucose 106 Lactic Acid Calcium 8.4 L Magnesium 2.3 Total Bilirubin 0.4 AST 15 ALT 15 Alkaline Phosphatase 108 Total Protein 7.8 Albumin 3.4 Lipase 102 Urine Color [place] H Urine Clarity Clear Urine pH 5.0 Ur Specific [place] 1.020 Urine Protein 100 H Urine Glucose (UA) 250 H Urine Ketones Trace H Urine Occult Blood Large H Urine Nitrate Positive H Urine Bilirubin Negative Urine Ictotest Negative Urine Urobilinogen 4.0 H Ur Leukocyte Esterase Trace H Urine RBC 15-50 H Urine WBC 9-20 H Ur Squamous Epith Cells 0-5 Urine Bacteria Rare H Micro UA Comment Culture indicated Ur Microscopic Review Microscopic reviewed Urine Culture Comments Culture indicated Clue Cells (Wet Prep) Trichomonas (Wet Prep) Yeast (Wet Prep) 01/18/18 01/18/18 04:50 06:15 CBC w Diff WBC RBC Hgb Hct MCV MCH MCHC RDW Plt Count MPV Neut % (Auto) Lymph % (Auto) [place] % (Auto) Eos % (Auto) Baso % (Auto) Neut # (Auto) Lymph # (Auto) [place] # (Auto) Eos # (Auto) Baso # (Auto) WBC Differential Differential Comment Sodium Potassium Chloride Carbon Dioxide Anion Gap BUN Creatinine Estimated GFR Random Glucose Lactic Acid 1.2 Calcium Magnesium Total Bilirubin AST ALT Alkaline Phosphatase Total Protein Albumin Lipase Urine Color Urine Clarity Urine pH Ur Specific [place] Urine Protein Urine Glucose (UA) Urine Ketones Urine Occult Blood Urine Nitrate Urine Bilirubin Urine Ictotest Urine Urobilinogen Ur Leukocyte Esterase Urine RBC Urine WBC Ur Squamous Epith Cells Urine Bacteria Micro UA Comment Ur Microscopic Review Urine Culture Comments Clue Cells (Wet Prep) None seen Trichomonas (Wet Prep) None seen Yeast (Wet Prep) None seen - Imaging Impressions Abdomen/Pelvis CT 01/18/18 02:52 CONCLUSION: 1. There is a 3.9 cm heterogeneous density lesion associated with the right ovary. The nonspecific this could represent a hemorrhagic cyst and is likely the cause for the patient's pain. There may be some associated inflammation in the adjacent fat and bowel. 2. The terminal ileum has a normal appearance and the appendix is normal and in a retrocecal position away from the right lower quadrant abnormality. Pelvis Ultrasound 01/18/18 05:45 CONCLUSION: 1. There is a complex cyst versus mass in the right adnexa measuring approximately 2.8 cm. This may represent a hemorrhagic cyst versus endometrioma. 2. The left ovary is heterogeneous. 3. The uterus is grossly unremarkable. Abdomen/Pelvis/Transvag US 01/18/18 08:13 CONCLUSION: 1. The uterus is grossly unremarkable. 2. Bilateral complex ovarian masses. 3. Both ovaries demonstrate blood flow. Assessment and Plan - Diagnosis (1) Acute pelvic pain Code(s): R10.2 - Pelvic and perineal pain Status: Acute (2) Ovarian cyst Code(s): N83.209 - Unspecified ovarian cyst, unspecified side Status: Acute (3) Urinary tract infection Code(s): N39.0 - Urinary tract infection, site not specified Status: Acute - Plan 27 yo G0 female with suspected acute cystitis and likely resolving right ovarian hemorrhagic cyst in setting of chronic endometriosis, admitted by ER physician and consulted at request of admitting team/ER. 1) RLQ pain and small R ovarian cyst: after reviewing images, pt history and patient exam, suspect right ovarian cyst is either hemorrhagic and resolving with small adjacent endometrioma or hemorrhagic alone; no free fluid in pelvis; based on history would not expect PID but based on exam will recommend treat x 24h with IV Cefotetan 2g q12h and doxycyline 100mg po q12h; has already received a dose of Zosyn, doxycycline and Rocephin in ED; suspect acute rectal pressure was related to hemorrhagic cyst as pain is improved now as is expected with a normal follicular menstrual cycle - has outpt SALES SERVICE SUPERVISOR Dr. Yuliet Moya, recommend f/u with her within next 1 week for repeat imaging to re-evaluate hemorrhagic cyst resolution vs possible small endometrioma - pelvic rest/no sex until finished with all antibiotics and cultures resulted with appropriate treatment as indicated - recommend continue home OCP for cycle control/dysmenorrhea relief - no acute surgical intervention warranted at this time based on exam and imaging - if remains afebrile after 24h of IV antibiotic treatment and WBC count trends down would recommend discharge tomorrow with oral doxycycline 100mg po bid x 10d of total dosing (including hospital therapy) 2) suspected cystitis/UTI: urine culture ordered & sent from ED, need to f/u culture & sensitivities to ensure appropriate antibiotic therapy given Thank you for this consultation on this pleasant female patient. From SALES SERVICE SUPERVISOR perspective pt already seems to be improved compared to her initial presentation in ED and if continues to improve as noted above then no further inpatient SALES SERVICE SUPERVISOR services necessary at this time; pt is aware she is to call Dr. Moya for outpt f/u on discharge from hospital. SALES SERVICE SUPERVISOR will sign off at this time but please feel free to call if any further questions or concerns during this hospitalization. Discharge Planning: anticipate 01/19/18 if ok with primary team (2) Ovarian cyst Qualifiers: Laterality: right Qualified Code(s): N83.201 - Unspecified ovarian cyst, right side (3) Urinary tract infection Qualifiers: Urinary tract infection type: acute cystitis Hematuria presence: without hematuria Qualified Code(s): N30.00 - Acute cystitis without hematuria
[2018-01-18] MEDS ORDERED: Piperacil/Tazo 4.5 GM Premix 4.5 GM/100 ML BAG IV.SIG SCH (13:00)
--- NOTE | 2018-01-18 14:27 | P.HP ---
History of Present Illness Primary Care Physician: No Primary Care Physician Chief Complaint: RLQ pain, dysuria History of Present Illness: This is a pleasant 27-year-old female patient with a known medical history of ovarian cyst who presented to the ED with complaints of right lower quadrant pain x 4 days as well as some burning with urination. Patient states that she went to the health clinic at her school, [employer], where she was given Pyridium and an antibiotic for a suspected UTI. She states that her pain had improved although on PM she developed a sharp pain in her right lower quadrant that lasted roughly an hour. Patient took a warm bath along with Motrin , which helped relieve the pain. The next morning she returned to the clinic due to continued pain but now in her anal area and it was suggested she use Ibuprofen. She does admit to a normal BM on Saturday but the pain continued. Patient does have a history of endometriosis and is status post endometrial cyst removal in 2008. Since that time patient has been doing well until 2016 when the cyst began to appear again. Per the records she follows with Dr. Moya and has been placed on OCP for the past 6 months, ending in November of this year. Her LMP was on 01/14/18, being her first period since starting OCP. Patient does admit to a UTI almost the same time last year and was treated with antibiotics. At the time of assessment today patient states her pain is improved but does complain of some cramping pain to her right lower quadrant. Denies any fever, chills, headache, chest pain, nausea, vomiting, diarrhea or further dysuria. is at bedside and assisting with the medical history as well. Patient is and no risk for STDs, monogamous and uses condoms. - Diagnosis (1) Acute pelvic inflammatory disease (PID) (2) Ovarian cyst (3) Urinary tract infection (4) Acute pelvic pain Review of Systems All other systems reviewed negative except as stated in HPI PMFSH - History History Provided By: Patient - Medical History Medical History: Medical History (Last Reviewed 01/18/18 @ 14:47 by Telma Woodson) History of endometriosis Primary dysmenorrhea - Surgical History Surgical History: Surgical History (Last Reviewed 01/18/18 @ 14:47 by Telma Woodson) H/O ovarian cystectomy History of repair of hiatal hernia Hx of LASIK - Family History Family History: Family History (Last Reviewed 01/18/18 @ 14:47 by Telma Woodson) Other Family history of endometriosis in first degree relative No family history of breast cancer No family history of ovarian cancer - Social History I have reviewed the patient's Social History: Yes - Tobacco History Second Hand Smoke Exposure: No Tobacco Use In Past 30 Days: No Smoking Status: Never smoker - Alcohol History How Often Do You Have a Drink Containing Alcohol: Monthly or less - Substance Use History Substance History: No History of Abuse - Travel History Recent Travel in the [place] Within the Last 8 Weeks: No Recent Travel Out of the Country Within the Last 8 Weeks: Yes - Immunization History Tetanus Immunization: Unsure Medications and Allergies Active Medications: Active Medications Acetaminophen (Tylenol) 650 mg PO Q4H PRN PRN Reason: Temp > 100.4 Ceftriaxone Sodium 1,000 mg/ (Sodium Chloride) 100 mls @ 200 mls/hr IV.SIG Q24H BOBO Piperacillin/Tazobactam/Dextrose (Zosyn 4.5 Gm Premix) 4.5 gm in 100 mls @ 200 mls/hr IV.SIG Q6H BOBO Last Admin: 01/18/18 13:20 Dose: 200 mls/hr Ondansetron HCl (Zofran Inj) 4 mg IV.PUSH Q6H PRN PRN Reason: NAUSEA OR VOMITING Sodium Chloride (Ns Flush) 2 ml IV.FLUSH PRN PRN PRN Reason: FLUSH AFTER USING IV ACCESS Last Admin: 01/18/18 04:20 Dose: 2 ml Sodium Chloride (Ns Flush) 2 ml IV.FLUSH BID BOBO Sodium Chloride (Ns Flush) 2 ml IV.FLUSH PRN PRN PRN Reason: FLUSH AFTER USING IV ACCESS Allergies Allergy/AdvReac Type Severity Reaction Status Date / Time No Known Allergies Allergy Verified 01/18/18 03:14 Home Medications Medication Instructions Recorded Confirmed Type No Known Home Medications 01/18/18 01/18/18 History Exam Vital signs: Vital Signs 01/18/18 01:23 01/18/18 05:02 01/18/18 11:00 Temperature 97.1 F L Pulse Rate 100 H 84 85 Respiratory Rate 18 18 16 Blood Pressure 123/82 119/76 147/108 H Pulse Oximetry 96 98 95 12/01/18 12:20 Temperature 97.4 F L Pulse Rate 87 Respiratory Rate 18 Blood Pressure 121/71 Pulse Oximetry 98 Intake & Output 01/17/18 01/18/18 01/18/18 18:59 06:59 18:59 Intake Total 1050 / 1050 Balance 1050 / 1050 Weight 68.9 kg Intake: IV 1050 / 1050 Zosyn 3.375 GM Premix 50 ML @ 50 / 50 100 mls/hr IV.SIG ONCE ONE Rx#: [id number] NS Inj 1,000 ML @ Wide Open IV. 1000 / 1000 SIG BOLUS ONE Rx#:[id number] Narrative: GENERAL: Well-developed, well-nourished patient in NAD. Pleasant. SKIN: Warm and dry. No rash. HEAD: Normocephalic. Atraumatic. EYES: Pupils equal and round. No scleral icterus. No injection or drainage. ENT: No nasal bleeding or discharge. Mucous membranes pink and moist. NECK: Supple. Trachea midline. CARDIOVASCULAR: Regular rate and rhythm. S1, S2 noted. No murmur appreciated. RESPIRATORY: No accessory muscle use. Clear to auscultation. Breath sounds equal bilaterally. GASTROINTESTINAL: Abdomen soft, nondistended. Normoactive bowel sounds x4. Tenderness to right lower quadrant palpation. MUSCULOSKELETAL: No obvious deformities. Extremities without clubbing, cyanosis , or edema. NEUROLOGICAL: Awake and alert. No obvious cranial nerve deficits. Motor grossly within normal limits. 5/5 muscle strength in bilateral upper and lower extremities. Normal speech. PSYCHIATRIC: Appropriate mood and affect; insight and judgment normal. Results - Labs CBC & Chem 7: 01/18/18 04:00 01/18/18 04:00 Labs: Laboratory Results - last 24 hr 01/18/18 01/18/18 01/18/18 04:00 04:00 04:00 CBC w Diff Auto diff final WBC 19.0 H RBC 4.64 Hgb 13.9 Hct 41.3 MCV 88.9 MCH 30.0 MCHC 33.7 RDW 12.7 Plt Count 415 MPV 7.5 Neut % (Auto) 85.4 H Lymph % (Auto) 8.7 L [place] % (Auto) 5.0 Eos % (Auto) 0.5 Baso % (Auto) 0.4 Neut # (Auto) 16.1 H Lymph # (Auto) 1.7 [place] # (Auto) 1.0 H Eos # (Auto) 0.1 Baso # (Auto) 0.1 WBC Differential . Differential Comment . Sodium 139 Potassium 3.9 Chloride 105 Carbon Dioxide 26.4 Anion Gap 8 BUN 11 Creatinine 0.78 Estimated GFR 87 L Random Glucose 106 Lactic Acid Calcium 8.4 L Magnesium 2.3 Total Bilirubin 0.4 AST 15 ALT 15 Alkaline Phosphatase 108 Total Protein 7.8 Albumin 3.4 Lipase 102 Urine Color [place] H Urine Clarity Clear Urine pH 5.0 Ur Specific [place] 1.020 Urine Protein 100 H Urine Glucose (UA) 250 H Urine Ketones Trace H Urine Occult Blood Large H Urine Nitrate Positive H Urine Bilirubin Negative Urine Ictotest Negative Urine Urobilinogen 4.0 H Ur Leukocyte Esterase Trace H Urine RBC 15-50 H Urine WBC 9-20 H Ur Squamous Epith Cells 0-5 Urine Bacteria Rare H Micro UA Comment Culture indicated Ur Microscopic Review Microscopic reviewed Urine Culture Comments Culture indicated Clue Cells (Wet Prep) Trichomonas (Wet Prep) Yeast (Wet Prep) Chlam trachomat DNA PCR N.gonorrhoeae DNA (PCR) 01/18/18 01/18/18 01/18/18 04:50 06:15 06:15 CBC w Diff WBC RBC Hgb Hct MCV MCH MCHC RDW Plt Count MPV Neut % (Auto) Lymph % (Auto) [place] % (Auto) Eos % (Auto) Baso % (Auto) Neut # (Auto) Lymph # (Auto) [place] # (Auto) Eos # (Auto) Baso # (Auto) WBC Differential Differential Comment Sodium Potassium Chloride Carbon Dioxide Anion Gap BUN Creatinine Estimated GFR Random Glucose Lactic Acid 1.2 Calcium Magnesium Total Bilirubin AST ALT Alkaline Phosphatase Total Protein Albumin Lipase Urine Color Urine Clarity Urine pH Ur Specific [place] Urine Protein Urine Glucose (UA) Urine Ketones Urine Occult Blood Urine Nitrate Urine Bilirubin Urine Ictotest Urine Urobilinogen Ur Leukocyte Esterase Urine RBC Urine WBC Ur Squamous Epith Cells Urine Bacteria Micro UA Comment Ur Microscopic Review Urine Culture Comments Clue Cells (Wet Prep) None seen Trichomonas (Wet Prep) None seen Yeast (Wet Prep) None seen Chlam trachomat DNA PCR Not detected N.gonorrhoeae DNA (PCR) Not detected - Imaging Impressions Abdomen/Pelvis CT 01/18/18 02:52 CONCLUSION: 1. There is a 3.9 cm heterogeneous density lesion associated with the right ovary. The nonspecific this could represent a hemorrhagic cyst and is likely the cause for the patient's pain. There may be some associated inflammation in the adjacent fat and bowel. 2. The terminal ileum has a normal appearance and the appendix is normal and in a retrocecal position away from the right lower quadrant abnormality. Pelvis Ultrasound 01/18/18 05:45 CONCLUSION: 1. There is a complex cyst versus mass in the right adnexa measuring approximately 2.8 cm. This may represent a hemorrhagic cyst versus endometrioma. 2. The left ovary is heterogeneous. 3. The uterus is grossly unremarkable. Abdomen/Pelvis/Transvag US 01/18/18 08:13 CONCLUSION: 1. The uterus is grossly unremarkable. 2. Bilateral complex ovarian masses. 3. Both ovaries demonstrate blood flow. Caprini VTE Risk Assessment Caprini VTE Risk Assessment: No/Low Risk (score <= 1) Caprini Risk Assessment Model: Point Value = 1 Point Value = 2 Point Value = 3 Point Value = 5 Age 41-60 Minor surgery BMI > 25 kg/m2 Swollen legs Varicose veins or History of unexplained or recurrent spontaneous Oral contraceptives or hormone replacement Sepsis (< 1 month) Serious lung disease, including pneumonia (< 1 month) Abnormal pulmonary function Acute myocardial infarction Congestive heart failure (< 1 month) History of inflammatory bowel disease Medical patient at bed rest Age 61-74 Arthroscopic surgery Major open surgery (> 45 min) Laparoscopic surgery (> 45 min) Malignancy Confined to bed (> 72 hours) Immobilizing plaster cast Central venous access Age >= 75 History of VTE Family history of VTE Factor V Leiden Prothrombin [id number] Lupus anticoagulant Anticardiolipin antibodies Elevated serum homocysteine Heparin-induced thrombocytopenia Other congenital or acquired thrombophilia Stroke (< 1 month) Elective arthroplasty Hip, pelvis, or leg fracture Acute spinal cord injury (< 1 month) Prophylaxis Regimen: Total Risk Factor Score Risk Level Prophylaxis Regimen 0-1 Low Early ambulation 2 Moderate Order ONE of the following: *Sequential Compression Device (SCD) *Heparin 5000 units SQ BID 3-4 Higher Order ONE of the following medications: *Heparin 5000 units SQ TID *Enoxaparin/Lovenox 40 mg SQ daily (WT < 150 kg, CrCl > 30 mL/min) *Enoxaparin/Lovenox 30 mg SQ daily (WT < 150 kg, CrCl > 10-29 mL/min) *Enoxaparin/Lovenox 30 mg SQ BID (WT < 150 kg, CrCl > 30 mL/min) AND/OR *Sequential Compression Device (SCD) 5 or more Highest Order ONE of the following medications: *Heparin 5000 units SQ TID (Preferred with Epidurals) *Enoxaparin/Lovenox 40 mg SQ daily (WT < 150 kg, CrCl > 30 mL/min) *Enoxaparin/Lovenox 30 mg SQ daily (WT < 150 kg, CrCl > 10-29 mL/min) *Enoxaparin/Lovenox 30 mg SQ BID (WT < 150 kg, CrCl > 30 mL/min) AND *Sequential Compression Device (SCD) Assessment and Plan - Assessment (1) Acute pelvic inflammatory disease (PID) Code(s): N73.0 - Acute parametritis and pelvic cellulitis Status: Acute (2) Ovarian cyst Code(s): N83.209 - Unspecified ovarian cyst, unspecified side Status: Acute (3) Urinary tract infection Code(s): N39.0 - Urinary tract infection, site not specified Status: Acute (4) Acute pelvic pain Code(s): R10.2 - Pelvic and perineal pain Status: Acute - Plan This is a 27-year-old female patient with: RLQ pain and small right ovarian cyst History of endometriosis History of ovarian cysts -Patient complaint of abdominal pain and dysuria x 4 days. -[employer] consulted, input and recommendations appreciated - Suspect right ovarian cyst is either hemorrhagic and resolving with small adjacent endometrioma or hemorrhagic alone. No surgical intervention needed at this time. Recommends continued home OCP for cycle control/dysmenorrhea relief. Recommend f/u with her within next 1 week for repeat imaging to re-evaluate hemorrhagic cyst resolution vs possible small endometrioma. Pelvic rest/no sex until finished with all antibiotics and cultures resulted with appropriate treatment as indicated. -Patient was given Zosyn and Ceftriaxone IV as well as Doxycycline. -[employer] recommended IV Cefotetan 2g q12h and doxycycline 100mg po q12h. Pharmacy does not have Cefotetan, Unasyn per literature is comparable. Will start on 3 gram IV q6hr. Continue on Doxycycline. -Pain is controlled. Continue on IVF, ensure hydration. -Supportive care. Abnormal UA rule out UTI/cystitis Leukocytosis suspect secondary to above -Failed outpatient antibiotic therapy. Patient does not recall which antibiotic she has been taking at home. -Was given Ceftriaxone, Zosyn and Doxycycline in ED. Will continue Unasyn and Doxy as above. -WBC 19,000. Afebrile. -Blood cultures pending. Urine culture pending. -Monitor for fever overnight. DVT Prophylaxis: Ambulation. (2) Ovarian cyst Qualifiers: Laterality: right Qualified Code(s): N83.201 - Unspecified ovarian cyst, right side (3) Urinary tract infection Qualifiers: Urinary tract infection type: acute cystitis Hematuria presence: without hematuria Qualified Code(s): N30.00 - Acute cystitis without hematuria
[2018-01-18] MEDS ORDERED: Morphine Sulfate Inj 2 MG/ML Vial IV.PUSH PRN (16:52)
[2018-01-18] MEDS: Ampicillin/Sulbactam Inj 3 GM in Sodium Chloride 0.9% Inj 100 ML IV.SIG SCH (17:11)
[2018-01-18] MEDS ORDERED: Senna/Docusate Sodium 8.6/50 MG Tablet PO PRN (20:04)
[2018-01-19] MEDS: Ampicillin/Sulbactam Inj 3 GM in Sodium Chloride 0.9% Inj 100 ML IV.SIG SCH ×3 (00:10→10:32)
[2018-01-19 08:36] LABS: Baso # (Auto) 0.2 th/mm3 (0.0-0.2); Baso % (Auto) 1.6 % (0.0-2.0); Eos # (Auto) 0.1 th/mm3 (0.0-0.4); Eos % (Auto) 1.4 % (0.0-4.0); Hematocrit 37.8 % (35.0-46.0); Hemoglobin 12.9 gm/dL (11.6-15.3); Lymph % (Auto) 28.2 % (9.0-44.0); Mean Corpuscular Hemoglobin 30.5 pg (27.0-34.0); Mean Corpuscular Volume 89.7 fL (80.0-100.0); Mean Platelet Volume 7.6 fL (7.0-11.0); Mono # (Auto) 0.8 th/mm3 (0.0-0.9); Mono % (Auto) 7.4 % (0.0-8.0); Neut # (Auto) 6.5 th/mm3 (1.8-7.7); Neut % (Auto) 61.4 % (16.0-70.0); Platelet Count 394 th/mm3 (150-450); Red Blood Count 4.21 mil/mm3 (4.00-5.30); Red Cell Distribution Width 12.5 % (11.6-17.2); White Blood Count 10.6 th/mm3 (4.0-11.0)
[2018-01-19 08:52] LABS: Chloride 107 meq/L (98-107); Potassium 3.7 meq/L (3.5-5.1); Sodium 141 meq/L (136-145)
[2018-01-19 08:55] LABS: Calcium 7.9 mg/dL (8.5-10.1)
[2018-01-19 08:56] LABS: Anion Gap 8 meq/L (5-15); Blood Urea Nitrogen 6 mg/dL (7-18); Carbon Dioxide 26.3 meq/L (21.0-32.0); Glucose,Random 90 mg/dL (74-106)
[2018-01-19 08:59] LABS: Glomerular Filtration Rate Greater Than 89 mL/min (>89)
[2018-01-19 09:27] VITALS: RESP 16
--- NOTE | 2018-01-19 10:35 | P.PNIM ---
Subjective Interval history: Follow-up abdominal cramping and UTI. Patient seen and examined, at bedside. Patient feels much improved. She states that she did feel some gas pain this morning was relieved with Gas-X. Positive bowel movement overnight. Is formed. Has been tolerating p.o. intake well without any nausea vomiting. Awaiting preliminary urine culture. Plan urine culture is back. Vital signs stable. Afebrile. Physical Exam Vital signs: Vital Signs 01/18/18 11:00 01/18/18 12:20 01/18/18 16:00 Temperature 97.4 F L 98.4 F Pulse Rate 85 87 80 Respiratory Rate 16 18 16 Blood Pressure 147/108 H 121/71 117/75 Pulse Oximetry 95 98 97 01/18/18 17:39 01/18/18 18:02 01/18/18 20:00 Temperature 96.7 F L Pulse Rate 81 Respiratory Rate 18 18 19 Blood Pressure 124/72 Pulse Oximetry 99 01/19/18 00:00 01/19/18 08:00 Temperature 96.8 F L Pulse Rate 89 101 H Respiratory Rate 18 16 Blood Pressure 118/72 123/71 Pulse Oximetry 93 L 98 Intake & Output 01/18/18 01/19/18 01/19/18 18:59 06:59 18:59 Intake Total 790 / 790 300 / 300 100 / 100 Output Total 180 / 180 Balance 790 / 790 120 / 120 100 / 100 Weight 68.9 kg 68.9 kg Intake: IV 200 / 200 100 / 100 100 / 100 Unasyn Inj 3 GM In NS Inj 100 100 / 100 100 / 100 100 / 100 ML @ 200 mls/hr IV.SIG Q6H BOBO Rx#:[id number] Zosyn 4.5 GM Premix 4.5 gm In 100 / 100 100 ml @ 200 mls/hr IV.SIG Q6H BOBO Rx#:[id number] Oral 590 / 590 Other 200 / 200 Output: Urine 150 / 150 Stool 30 / 30 Other: Other Intake Source Saline Solution # Voids 2 Date of Last Bowel Movement 01/19/18 Weight On Admission 68.9 kg Narrative: GENERAL: Well-developed, well-nourished patient in NAD. Pleasant. SKIN: Warm and dry. No rash. HEAD: Normocephalic. Atraumatic. EYES: Pupils equal and round. No scleral icterus. No injection or drainage. ENT: No nasal bleeding or discharge. Mucous membranes pink and moist. NECK: Supple. Trachea midline. CARDIOVASCULAR: Regular rate and rhythm. S1, S2 noted. No murmur appreciated. RESPIRATORY: No accessory muscle use. Clear to auscultation. Breath sounds equal bilaterally. GASTROINTESTINAL: Abdomen soft, nondistended. Normoactive bowel sounds x4. Tenderness to right lower quadrant palpation. MUSCULOSKELETAL: No obvious deformities. Extremities without clubbing, cyanosis , or edema. NEUROLOGICAL: Awake and alert. No obvious cranial nerve deficits. Motor grossly within normal limits. 5/5 muscle strength in bilateral upper and lower extremities. Normal speech. PSYCHIATRIC: Appropriate mood and affect; insight and judgment normal. Results - Labs CBC & Chem 7: 01/19/18 07:28 01/19/18 07:28 Laboratory Results - last 24 hr 01/18/18 01/19/18 01/19/18 06:15 07:28 07:28 CBC w Diff Auto diff final WBC 10.6 RBC 4.21 Hgb 12.9 Hct 37.8 MCV 89.7 MCH 30.5 MCHC 34.0 RDW 12.5 Plt Count 394 MPV 7.6 Neut % (Auto) 61.4 Lymph % (Auto) 28.2 [place] % (Auto) 7.4 Eos % (Auto) 1.4 Baso % (Auto) 1.6 Neut # (Auto) 6.5 Lymph # (Auto) 3.0 [place] # (Auto) 0.8 Eos # (Auto) 0.1 Baso # (Auto) 0.2 WBC Differential . Differential Comment . Sodium 141 Potassium 3.7 Chloride 107 Carbon Dioxide 26.3 Anion Gap 8 BUN 6 L Creatinine 0.75 Estimated GFR Greater than 89 Random Glucose 90 Calcium 7.9 L Chlam trachomat DNA PCR Not detected N.gonorrhoeae DNA (PCR) Not detected Assessment and Plan - Assessment (1) Acute pelvic inflammatory disease (PID) Code(s): N73.0 - Acute parametritis and pelvic cellulitis Status: Acute (2) Ovarian cyst Code(s): N83.209 - Unspecified ovarian cyst, unspecified side Status: Acute (3) Urinary tract infection Code(s): N39.0 - Urinary tract infection, site not specified Status: Acute (4) Acute pelvic pain Code(s): R10.2 - Pelvic and perineal pain Status: Acute - Plan This is a 27-year-old female patient with: RLQ pain and small right ovarian cyst History of endometriosis History of ovarian cysts -Patient complaint of abdominal pain and dysuria x 4 days. -SHANK CUTTER consulted, input and recommendations appreciated - Suspect right ovarian cyst is either hemorrhagic and resolving with small adjacent endometrioma or hemorrhagic alone. No surgical intervention needed at this time. Recommends continued home OCP for cycle control/dysmenorrhea relief. Recommend f/u with her within next 1 week for repeat imaging to re-evaluate hemorrhagic cyst resolution vs possible small endometrioma. Pelvic rest/no sex until finished with all antibiotics and cultures resulted with appropriate treatment as indicated. -Patient was given Zosyn and Ceftriaxone IV as well as Doxycycline. -SHANK CUTTER recommended IV Cefotetan 2g q12h and doxycycline 100mg po q12h. Pharmacy does not have Cefotetan, Unasyn per literature is comparable. Will start on 3 gram IV q6hr. Continue on Doxycycline. -Pain is controlled. Continue on IVF, ensure hydration. -Supportive care. Abnormal UA rule out UTI/cystitis Leukocytosis suspect secondary to above. Improved. -Failed outpatient antibiotic therapy. Was prescribed Nitrofurantoin. -Was given Ceftriaxone, Zosyn and Doxycycline in ED. Will continue Unasyn and Doxy as above. Continue until Urine culture back. -WBC 19,000 improved today. Afebrile. -Blood cultures no growth to date. Urine culture pending. DVT Prophylaxis: Ambulation. Discharge Planning: DC home when urine culture back. (2) Ovarian cyst Qualifiers: Laterality: right Qualified Code(s): N83.201 - Unspecified ovarian cyst, right side (3) Urinary tract infection Qualifiers: Urinary tract infection type: acute cystitis Hematuria presence: without hematuria Qualified Code(s): N30.00 - Acute cystitis without hematuria
[2018-01-19] MEDS ORDERED: Simethicone 80 MG Chew Tablet PO ONE ×2 (11:00→13:57)
[2018-01-19 13:53] VITALS: BP 122/74; PULSE 91; TEMP 97.3; O2SAT 100
== END 2018-01-19 15:52 | disposition home or self-care (01) ==
LOC: PHED 01:18 → INTOOBSV 10:54 → PHEDA 10:54 → PH3 12:25
PROVIDERS: ADMIT Internal Medicine; ATTEND Internal Medicine